=== PATIENT | male | born 1980 | race Caucasian/White ===

== ENCOUNTER → 2024-11-10 08:57 | Outpatient (REF) | payer OTHER, SELFPAY | LOC: RAD 08:57 | PROVIDERS: ATTENDING PHYSICIAN Nurse Practitioner Family; FAMILY PHYSICIAN Family Medicine; REFERRING PHYSICIAN Family Medicine | DX: M06.30 Rheumatoid nodule, unspecified site (principal); M25.562 Pain in left knee | CPT/HCPCS: 73564; 76700; 76882 ==

== ENCOUNTER → 2024-11-20 15:56 | Outpatient (REF) | payer OTHER, SELFPAY | LOC: HWRAD 15:56 | PROVIDERS: ATTENDING PHYSICIAN Radiology Diagnostic Radiology; FAMILY PHYSICIAN Family Medicine | DX: S05.50XA Penetrating wound with foreign body of unspecified eyeball, initial encounter (principal) | CPT/HCPCS: 70030 ==

== ENCOUNTER → 2024-11-26 09:09 | Outpatient (REF) | payer OTHER, SELFPAY | LOC: MRI 3T 09:09 | PROVIDERS: ATTENDING PHYSICIAN Family Medicine | DX: M25.562 Pain in left knee (principal) | CPT/HCPCS: 73721 ==